=== PATIENT | female | born 1955 | race Caucasian/White ===

== ENCOUNTER 2021-08-24 12:07 | Emergency (ER) | payer MEDICARE, MEDICAID ==
[2021-08-24] MEDS ORDERED: Acetaminophen 325 MG Tab PO ONE (13:08)
== END 2021-08-24 16:45 | disposition home or self-care (01) ==
LOC: JD.ED 12:07
DX: S00.83XA Contusion of other part of head, initial encounter (principal); K21.9 Gastro-esophageal reflux disease without esophagitis; E66.9 Obesity, unspecified; Z86.73 Personal history of transient ischemic attack (TIA), and cerebral infarction without residual deficits; Z91.011 Allergy to milk products; Z88.1 Allergy status to other antibiotic agents; Z68.43 Body mass index [BMI] 50.0-59.9, adult; Z88.8 Allergy status to other drugs, medicaments and biological substances; Z79.82 Long term (current) use of aspirin; Z79.899 Other long term (current) drug therapy; W22.09XA Striking against other stationary object, initial encounter; Y92.129 Unspecified place in nursing home as the place of occurrence of the external cause
CPT/HCPCS: 70450; 70486; 99284; A9270

== ENCOUNTER 2022-07-07 10:34 | Inpatient (IN) | payer MEDICARE, MEDICAID ==
[2022-07-07] MEDS ORDERED: Sucralfate Suspension 1 GM/10 ML Cup PO ONE (10:57)
[2022-07-07] MEDS ORDERED: Sodium Chloride 0.9% 1,000 ML IV SCH (11:15)
[2022-07-07 12:03] LABS: CORONAVIRUS COVID-19 NAA NEGATIVE (NEGATIVE)
[2022-07-07 12:13] LABS: ESTIMATED GFR 50 mL/min (>60)
[2022-07-07] MEDS ORDERED: Albuterol 0.083% 2.5 MG/3 ML Neb Soln NEB PRN (13:08)
[2022-07-07] MEDS ORDERED: Docusate Sodium 100 MG Cap PO PRN (13:08)
[2022-07-07] MEDS ORDERED: Ondansetron 4 MG/2 ML SDV IV PRN (13:08)
[2022-07-07] MEDS ORDERED: Acetaminophen 325 MG Tab PO PRN (13:08)
[2022-07-07] MEDS ORDERED: Albuterol/Ipratropium 3.0-0.5 MG/3 ML Neb Soln NEB PRN (13:08)
[2022-07-07] MEDS ORDERED: Iopamidol 755 Mg/ML 100 ML Bottle IVPUSH ONE (13:14)
[2022-07-07] MEDS ORDERED: Sodium Chloride 0.9% 10 ML Syringe FLUSH ONE (13:14)
[2022-07-07] MEDS ORDERED: Sodium Chloride 0.9% 100 ML IV SCH (13:15)
[2022-07-07] MEDS: cefTRIAXone 2 GM in Sodium Chloride 0.9% 100 ML IV SCH (14:06)
[2022-07-07 15:23] LABS: HEMOGLOBIN A1C 6.8 %
[2022-07-07] MEDS ORDERED: Sodium Chloride 0.45% with KCl 1,000 ML IV SCH (15:30)
[2022-07-07] MEDS ORDERED: Aspirin 81 MG Tab.Chew PO SCH (15:30)
[2022-07-07] MEDS: Albuterol/Ipratropium 3.0-0.5 MG/3 ML Neb Soln NEB SCH ×2 (16:49→20:36)
[2022-07-07] MEDS: Azithromycin 500 MG in Sodium Chloride 0.9% 250 ML IV SCH (18:34)
[2022-07-07] MEDS: Non-Formulary Medication 1 Each (Dextran 70/Hypromellose [Artificial Tears] 1 EACH Dropere OP SCH ×2 (18:40→20:38)
[2022-07-07] MEDS: atorvaSTATin 40 MG Tab PO SCH (20:36)
[2022-07-07] MEDS: Topiramate 100 MG Tab PO SCH (20:36)
[2022-07-07] MEDS: Propranolol 40 MG Tab PO SCH (20:36)
[2022-07-07] MEDS ORDERED: PETROLATUM TOP SCH (21:00)
[2022-07-07] MEDS ORDERED: PHENYLEPHRINE TOP SCH (21:00)
[2022-07-07] MEDS ORDERED: MOXIFLOXACIN EYERT SCH (21:00)
[2022-07-07] MEDS ORDERED: MINERAL OIL TOP SCH (21:00)
[2022-07-08] MEDS: Albuterol/Ipratropium 3.0-0.5 MG/3 ML Neb Soln NEB SCH ×4 (05:05→21:00)
[2022-07-08] MEDS: Non-Formulary Medication 1 Each (Dextran 70/Hypromellose [Artificial Tears] 1 EACH Dropere OP SCH (06:05)
[2022-07-08] MEDS ORDERED: Magnesium Sulfate/Water 2 GM in Premix Bag 1 BAG IV ONE (07:45)
[2022-07-08] MEDS ORDERED: Hydrocortisone 1% Crm 30 GM Tube TOP PRN (08:00)
[2022-07-08] MEDS ORDERED: Non-Formulary Medication 1 Each (Omeprazole 20 MG Capsule.Dr) PO SCH (09:00)
[2022-07-08] MEDS: Topiramate 100 MG Tab PO SCH ×2 (09:29→21:16)
[2022-07-08] MEDS: Carboxymethylcellulose Sodium 1% Ophth Gel 15 ML Bottle EYEBOTH SCH ×5 (09:29→21:18)
[2022-07-08] MEDS: valACYclovir 1,000 MG Tab PO SCH (09:29)
[2022-07-08] MEDS: prednisoLONE Acetate 1% Ophth Susp 5 ML Bottle EYERT SCH (09:29)
[2022-07-08] MEDS: Enoxaparin 40 MG/0.4 ML Syringe SUBCUT SCH (09:29)
[2022-07-08] MEDS: Propranolol 40 MG Tab PO SCH ×2 (09:29→21:16)
[2022-07-08] MEDS: Citalopram 20 MG Tab PO SCH (09:29)
[2022-07-08] MEDS: MOXIFLOXACIN EYERT SCH ×3 (09:38→21:18)
[2022-07-08] MEDS ORDERED: Furosemide 20 MG/2 ML VIAL IVPUSH ONE (09:45)
[2022-07-08] MEDS: Insulin Lispro 100 Unit/ML 3 ML KwikPen SUBCUT SCH ×3 (11:45→21:17)
[2022-07-08] MEDS: cefTRIAXone 2 GM in Sodium Chloride 0.9% 100 ML IV SCH (12:24)
[2022-07-08] MEDS ORDERED: Lactated Ringers 500 ML IV ONE (12:33)
[2022-07-08] MEDS: Azithromycin 500 MG in Sodium Chloride 0.9% 250 ML IV SCH (14:06)
[2022-07-08] MEDS: atorvaSTATin 40 MG Tab PO SCH (21:16)
[2022-07-09] MEDS: Carboxymethylcellulose Sodium 1% Ophth Gel 15 ML Bottle EYEBOTH SCH ×6 (05:25→21:34)
[2022-07-09] MEDS: Albuterol/Ipratropium 3.0-0.5 MG/3 ML Neb Soln NEB SCH ×4 (05:44→20:08)
[2022-07-09] MEDS: Insulin Lispro 100 Unit/ML 3 ML KwikPen SUBCUT SCH ×4 (07:49→21:34)
[2022-07-09] MEDS: Propranolol 40 MG Tab PO SCH ×2 (08:25→21:33)
[2022-07-09] MEDS: Topiramate 100 MG Tab PO SCH ×2 (08:25→21:34)
[2022-07-09] MEDS: Citalopram 20 MG Tab PO SCH (08:25)
[2022-07-09] MEDS: Pantoprazole 40 MG Tab.CR PO SCH (08:25)
[2022-07-09] MEDS: valACYclovir 1,000 MG Tab PO SCH (08:25)
[2022-07-09] MEDS: Enoxaparin 40 MG/0.4 ML Syringe SUBCUT SCH (08:26)
[2022-07-09] MEDS: prednisoLONE Acetate 1% Ophth Susp 5 ML Bottle EYERT SCH (08:55)
[2022-07-09] MEDS: MOXIFLOXACIN EYERT SCH ×3 (08:58→21:41)
[2022-07-09] MEDS ORDERED: Azithromycin 500 MG Vial ONE (12:31)
[2022-07-09] MEDS: cefTRIAXone 2 GM in Sodium Chloride 0.9% 100 ML IV SCH (12:58)
[2022-07-09] MEDS: Azithromycin 500 MG in Sodium Chloride 0.9% 250 ML IV SCH (13:52)
[2022-07-09] MEDS ORDERED: methylPREDNISolone Sodium Succinate 125 MG/2 ML SDV IVPUSH ONE (15:58)
[2022-07-09] MEDS: atorvaSTATin 40 MG Tab PO SCH (21:33)
[2022-07-10] MEDS: Carboxymethylcellulose Sodium 1% Ophth Gel 15 ML Bottle EYEBOTH SCH ×6 (06:20→20:34)
[2022-07-10] MEDS: Pantoprazole 40 MG Tab.CR PO SCH (06:20)
[2022-07-10] MEDS: Albuterol/Ipratropium 3.0-0.5 MG/3 ML Neb Soln NEB SCH ×4 (06:24→20:14)
[2022-07-10] MEDS: Insulin Lispro 100 Unit/ML 3 ML KwikPen SUBCUT SCH ×4 (09:46→20:41)
[2022-07-10] MEDS: Citalopram 20 MG Tab PO SCH (09:47)
[2022-07-10] MEDS: Enoxaparin 40 MG/0.4 ML Syringe SUBCUT SCH (09:47)
[2022-07-10] MEDS: Cyanocobalamin (Vitamin B12) 1,000 MCG Tab PO SCH (09:47)
[2022-07-10] MEDS: Topiramate 100 MG Tab PO SCH ×2 (09:47→20:24)
[2022-07-10] MEDS: Propranolol 40 MG Tab PO SCH ×2 (09:47→20:25)
[2022-07-10] MEDS: valACYclovir 1,000 MG Tab PO SCH (09:47)
[2022-07-10] MEDS: MOXIFLOXACIN EYERT SCH ×3 (09:50→20:43)
[2022-07-10] MEDS: methylPREDNISolone Sodium Succinate 40 MG/1 ML SDV IVPUSH SCH ×2 (09:50→20:25)
[2022-07-10] MEDS: prednisoLONE Acetate 1% Ophth Susp 5 ML Bottle EYERT SCH (09:50)
[2022-07-10] MEDS: cefTRIAXone 2 GM in Sodium Chloride 0.9% 100 ML IV SCH (12:29)
[2022-07-10] MEDS: atorvaSTATin 40 MG Tab PO SCH (20:25)
[2022-07-11] MEDS: Carboxymethylcellulose Sodium 1% Ophth Gel 15 ML Bottle EYEBOTH SCH ×2 (05:14→08:10)
[2022-07-11] MEDS: Albuterol/Ipratropium 3.0-0.5 MG/3 ML Neb Soln NEB SCH ×2 (06:07→09:24)
[2022-07-11] MEDS: Insulin Lispro 100 Unit/ML 3 ML KwikPen SUBCUT SCH ×2 (08:08→11:23)
[2022-07-11] MEDS: Citalopram 20 MG Tab PO SCH (08:09)
[2022-07-11] MEDS: methylPREDNISolone Sodium Succinate 40 MG/1 ML SDV IVPUSH SCH (08:09)
[2022-07-11] MEDS: Cyanocobalamin (Vitamin B12) 1,000 MCG Tab PO SCH (08:09)
[2022-07-11] MEDS: Topiramate 100 MG Tab PO SCH (08:09)
[2022-07-11] MEDS: valACYclovir 1,000 MG Tab PO SCH (08:09)
[2022-07-11] MEDS: Propranolol 40 MG Tab PO SCH (08:09)
[2022-07-11] MEDS: Pantoprazole 40 MG Tab.CR PO SCH (08:09)
[2022-07-11] MEDS: prednisoLONE Acetate 1% Ophth Susp 5 ML Bottle EYERT SCH (08:10)
[2022-07-11] MEDS: Enoxaparin 40 MG/0.4 ML Syringe SUBCUT SCH (08:10)
[2022-07-11] MEDS: MOXIFLOXACIN EYERT SCH (08:10)
== END 2022-07-11 13:35 | DRG 871 ==
LOC: JD.ED 10:34 → JD.MS 12:53
PROVIDERS: ADMIT Internal Medicine; ATTEND Internal Medicine
DX: A41.51 Sepsis due to Escherichia coli [E. coli] (principal); J18.9 Pneumonia, unspecified organism; J96.01 Acute respiratory failure with hypoxia; Z68.42 Body mass index [BMI] 45.0-49.9, adult; N39.0 Urinary tract infection, site not specified; R65.20 Severe sepsis without septic shock; R73.03 Prediabetes; R09.02 Hypoxemia; I50.9 Heart failure, unspecified; Z66 Do not resuscitate; H54.7 Unspecified visual loss; Z20.822 Contact with and (suspected) exposure to COVID-19; F41.9 Anxiety disorder, unspecified; E53.8 Deficiency of other specified B group vitamins; R73.9 Hyperglycemia, unspecified; Z91.011 Allergy to milk products; Z88.2 Allergy status to sulfonamides; I11.0 Hypertensive heart disease with heart failure; E66.9 Obesity, unspecified; Z86.16 Personal history of COVID-19; I69.30 Unspecified sequelae of cerebral infarction; K21.9 Gastro-esophageal reflux disease without esophagitis; Z79.82 Long term (current) use of aspirin; Z79.899 Other long term (current) drug therapy; Z86.73 Personal history of transient ischemic attack (TIA), and cerebral infarction without residual deficits
CPT/HCPCS: 0241U; 36415; 36600; 71045; 71275; 80048; 80053; 81001; 82803; 82947; 83036; 83605; 83735; 83880; 84145; 84484; 85025; 85379; 85610; 85730; 86140; 86738; 87040; 87086; 87088; 87186; 87641; 87899; 92610; 93005; 93307; 94640; 94660; 94667; 94668; 94761; 97162; 97166; 97530; 93010; 99285; A9270-GY; J0456; J0696; J1650; J1815; J1940; J2920; J2930; J3475; J3480; J3490; J7030; J7050; J7120; J7620-GY; Q9967

== ENCOUNTER 2022-10-05 19:12 | Emergency (ER) | payer MEDICARE, MEDICAID ==
[2022-10-05] MEDS ORDERED: Sodium Chloride 0.9% 1,000 ML IV SCH (20:30)
[2022-10-05 21:35] LABS: CORONAVIRUS COVID-19 NAA NEGATIVE (NEGATIVE)
[2022-10-05] MEDS ORDERED: Levofloxacin/Dextrose 5%-Water 750 MG in Premix Bag 1 BAG IV STA (22:16)
[2022-10-05] MEDS ORDERED: LORazepam 2 MG/ML SDV IVPUSH ONE (22:35)
[2022-10-06] MEDS ORDERED: Heparin Sodium 5,000 Units/ML Vial IVPUSH STA (00:38)
[2022-10-06] MEDS ORDERED: Heparin Sodium/D5W 25,000 UNITS/500 ML BAG IV SCH (00:45)
[2022-10-06] MEDS ORDERED: HYDROmorphone 0.5 MG/0.5 ML Syringe IVPUSH ONE ×3 (01:04→07:10)
== END 2022-10-06 07:45 | disposition home or self-care (01) ==
LOC: JD.ED 19:12
DX: I74.5 Embolism and thrombosis of iliac artery (principal); I70.291 Other atherosclerosis of native arteries of extremities, right leg; I99.8 Other disorder of circulatory system; E78.00 Pure hypercholesterolemia, unspecified; I10 Essential (primary) hypertension; J44.9 Chronic obstructive pulmonary disease, unspecified; K21.9 Gastro-esophageal reflux disease without esophagitis; E66.9 Obesity, unspecified; Z88.2 Allergy status to sulfonamides; Z88.1 Allergy status to other antibiotic agents; Z79.82 Long term (current) use of aspirin; Z79.899 Other long term (current) drug therapy; Z79.51 Long term (current) use of inhaled steroids; Z91.011 Allergy to milk products; Z86.16 Personal history of COVID-19; Z20.822 Contact with and (suspected) exposure to COVID-19; Z68.42 Body mass index [BMI] 45.0-49.9, adult
CPT/HCPCS: 0241U; 36415; 71260; 74177; 75635; 80053; 81001; 83605; 83735; 83880; 84484; 85007; 85027; 85379; 85610; 85730; 86140; 87040; 87077; 87086; 87088; 87154; 87186; 93005; 96365; 96375; 96376; 99285; J1170; J1956; J2060; J7030